=== PATIENT | female | born 1985 | race Caucasian/White ===

== ENCOUNTER → 2018-04-17 | Outpatient (REF) | payer OTHER | LOC: M SFHCLERA 11:15 | PROVIDERS: ATTEND Nurse Practitioner Family | DX: J02.9 Acute pharyngitis, unspecified (principal) ==

== ENCOUNTER 2018-12-15 03:16 | Inpatient (IN) | payer OTHER ==
[~2018-12-15] VITALS: Ht 157.5 cm; Wt 112.1 kg
[2018-12-15] MEDS ORDERED: NS 1,000 ML IV ONE (04:00)
[2018-12-15] MEDS ORDERED: MORPHINE 4 MG/ML 1ML VIAL/SYRINGE (J2270) IV ONE (04:00)
[2018-12-15 04:04] LABS: BASO % 0.4 % (0.0-1.0); EOS # 0.1 10^3/uL (0.0-0.5); EOS % 0.9 % (0.0-3.0); HEMATOCRIT 37.8 % (36.0-47.0); HEMOGLOBIN 12.7 g/dl (12.0-15.5); LYMPH # 1.4 10^3/uL (1.5-5.0); LYMPH % 15.6 % (24.0-44.0); MEAN CORPUSCULAR HEMOGLOBIN 31.3 pg (27.0-33.0); MEAN CORPUSCULAR HGB CONC 33.6 g/dl (32.0-36.5); MEAN CORPUSCULAR VOLUME 93.1 fl (80.0-96.0); MONO # 0.8 10^3/uL (0.0-0.8); MONO % 8.4 % (0.0-5.0); NEUTROPHILS # 6.7 10^3/uL (1.5-8.5); NEUTROPHILS % 74.5 % (36.0-66.0); PLATELET COUNT, AUTOMATED 276 10^3/uL (150-450); RED BLOOD COUNT 4.06 10^6/uL (4.00-5.40)
[2018-12-15 04:36] LABS: ALBUMIN 3.5 GM/DL (3.2-5.2); ALT/SGPT 21 U/L (12-78); BILIRUBIN,DIRECT < 0.1 MG/DL (0.0-0.2); BILIRUBIN,TOTAL 0.3 MG/DL (0.2-1.0); BLOOD UREA NITROGEN 11 MG/DL (7-18); CALCIUM LEVEL 8.8 MG/DL (8.5-10.1); CARBON DIOXIDE LEVEL 27 MEQ/L (21-32); CHLORIDE LEVEL 107 MEQ/L (98-107); CREATININE FOR GFR 0.71 MG/DL (0.55-1.30); GLOMERULAR FILTRATION RATE > 60.0 (>60); GLUCOSE, FASTING 94 MG/DL (70-100); LIPASE 91 U/L (73-393); POTASSIUM SERUM 3.7 MEQ/L (3.5-5.1); SODIUM LEVEL 139 MEQ/L (136-145); TOTAL PROTEIN 7.6 GM/DL (6.4-8.2)
[2018-12-15 04:38] LABS: HCG, SERUM QUALITATIVE NEGATIVE (NEGATIVE)
[2018-12-15 04:50] LABS: APPEARANCE, URINE CLEAR (CLEAR); BACTERIA, URINE AUTO 1+ (NEGATIVE); BILIRUBIN, URINE AUTO NEGATIVE (NEGATIVE); BLOOD, URINE BLOOD NEGATIVE (NEGATIVE); CALCIUM OXALATE CRYSTALS SMALL; COLOR, URINE STRAW (YELLOW); GLUCOSE, URINE (UA) AUTO NEGATIVE (NEGATIVE); KETONE, URINE AUTO NEGATIVE (NEGATIVE); LEUKOCYTE ESTERASE, URINE AUTO TRACE (NEGATIVE); NITRITE, URINE AUTO NEGATIVE (NEGATIVE); PROTEIN, URINE AUTO NEGATIVE (NEGATIVE); RBC, URINE AUTO 1 /HPF (0-3); SPECIFIC GRAVITY URINE AUTO 1.002 (1.002-1.035); SQUAMOUS EPITHELIAL CELL UR AU 3 /HPF (0-6); UROBILINOGEN, URINE AUTO 0.2 mg/dL (0.0-2.0); WBC, URINE AUTO 1 /HPF (0-3)
[2018-12-15] MEDS ORDERED: ISOVUE-370 76% 100ML VIAL (Q9967) As Ordered ONE (04:56)
--- NOTE | 2018-12-15 05:44 | REPVR ---
PROCEDURE INFORMATION: Exam: CT Angiography Chest With Contrast Exam date and time: 12/15/2018 4:52 AM Clinical history: 33 years old, female; Chest pain; Type not specified; Additional info: R flank/lower chest pain TECHNIQUE: Imaging protocol: Computed tomographic angiography of the chest with intravenous contrast. 3D rendering: MIP reconstructed images were created and reviewed. Radiation optimization: All CT scans at this facility use at least one of these dose optimization techniques: automated exposure control; mA and/or kV adjustment per patient size (includes targeted exams where dose is matched to clinical indication); or iterative reconstruction. Contrast material: ISO; Contrast volume: 75 ml; Contrast route: AC; COMPARISON: No relevant prior studies available. FINDINGS: Pulmonary arteries: Normal. No pulmonary emboli. Aorta: Unremarkable. No aortic aneurysm. No aortic dissection. Lungs: Unremarkable. No consolidation. No masses. Pleural space: Unremarkable. No pneumothorax. No pleural effusion. Heart: Unremarkable. No cardiomegaly. No pericardial effusion. Lymph nodes: Unremarkable. No enlarged lymph nodes. Bones/joints: Unremarkable. No acute fracture. Soft tissues: Unremarkable. IMPRESSION: No acute findings. Electronically signed by: Jethro Mars On 12/15/2018 05:43:57 AM
--- NOTE | 2018-12-15 06:00 | REPVR ---
PROCEDURE INFORMATION: Exam: CT Abdomen And Pelvis With Contrast Exam date and time: 12/15/2018 4:52 AM Clinical history: 33 years old, female; Abdominal pain; Flank; Right; Additional info: R flank/lower chest pain TECHNIQUE: Imaging protocol: Computed tomography of the abdomen and pelvis with intravenous contrast. Radiation optimization: All CT scans at this facility use at least one of these dose optimization techniques: automated exposure control; mA and/or kV adjustment per patient size (includes targeted exams where dose is matched to clinical indication); or iterative reconstruction. Contrast material: ISO; Contrast volume: 100 ml; Contrast route: AC; COMPARISON: No relevant prior studies available. FINDINGS: Liver: The liver is hypoattenuated. Gallbladder and bile ducts: There is a 2.4 cm gallstone in the neck of the gallbladder. The gallbladder is distended measuring 10.0 x 3.1 cm. There is no definite gallbladder wall thickening or pericholecystic fluid there is mild increased density in the gallbladder fossa. Pancreas: Normal. No ductal dilation. Spleen: Normal. No splenomegaly. Adrenals: Normal. No mass. Kidneys and ureters: Normal. No hydronephrosis. Stomach and bowel: Unremarkable. No obstruction. No mucosal thickening. Appendix: No evidence of appendicitis. Intraperitoneal space: Unremarkable. No free air. No significant fluid collection. Vasculature: Unremarkable. No abdominal aortic aneurysm. Lymph nodes: There are shotty small bowel mesenteric lymph nodes. Bladder: Unremarkable as visualized. Reproductive: IUD seen low-lying in the lower uterine segment/cervix.. There is 2.9 x 2.8 cm left ovarian cyst. There is 3.6 x 3.3 cm right ovarian cyst measuring higher than simple fluid density. Bones/joints: Lower thoracic spine anterior osteophytes seen. Soft tissues: Unremarkable. IMPRESSION: 1. Fatty infiltration of the liver. 2. 2.4 cm gallstone. 3. Mild increased density in the hepatic gallbladder fossa be secondary to focal fatty sparing or hyperemia secondary to gallbladder inflammation. Correlate with clinical history and LFTs. If indicated HIDA scan may be obtained for further evaluation. 4. 2.5 cm left ovarian cyst, simple appearing. 5. 3.6 cm right ovarian cyst measuring higher than simple fluid could be hemorrhagic cyst. 6. Low-lying IUD in the lower uterine segment/cervix. 7. Nonspecific shotty small bowel mesenteric lymph nodes. Correlate with clinical history and symptoms for enteritis. Electronically signed by: Jethro Mars On 12/15/2018 05:59:48 AM
[2018-12-15] MEDS ORDERED: PERCOCET 5MG/325MG TAB PO PRN ×2 (06:45)
[2018-12-15] MEDS ORDERED: ONDANSETRON 4MG/2ML VIAL (J2405) IV PRN (06:45)
[2018-12-15] MEDS ORDERED: ACETAMINOPHEN TAB 650MG DOSE (2X325MG) PO PRN (06:45)
[2018-12-15 08:15] VITALS: BP 133/90
[2018-12-15] MEDS: PANTOPRAZOLE 40MG INJ (PROTONIX) (C9113) IV SCH (09:05)
[2018-12-15] MEDS: MORPHINE 2 MG/ML 1ML VIAL (J2270) IV PRN ×3 (09:05→20:31)
[2018-12-15] MEDS: CelecoXIB (CeleBREX) 100 MG CAP PO SCH ×2 (09:06→20:31)
[2018-12-15] MEDS: metroNIDAZOLE 500 MG in IV 1 EA IV SCH ×2 (09:08→16:48)
[2018-12-15] MEDS: LR 1,000 ML IV SCH ×3 (09:08→20:32)
[2018-12-15] MEDS: ENOXAPARIN 40 MG/0.4 ML SYRINGE (J1650) SC SCH (09:08)
[2018-12-15] MEDS: AMPICILLIN SOD/SULBACTAM SOD 3 GM in D5W MINI-BAG PLUS 100 ML IV SCH ×3 (10:34→20:31)
[2018-12-15 14:00] VITALS: BP 114/72
--- NOTE | 2018-12-15 18:31 | HPEPDOC ---
General Surgery H&P Date of Admission Dec 15, 2018 Attending Physician: MARÍA CRESPO MD History and Physical CHIEF COMPLAINT: abdominal pain HISTORY OF PRESENT ILLNESS: Patient presented to the ED at about 3 am this morning with complaints of worsening right upper quadrant abdominal pain that started abruptly at about 9 pm. She had pizza for dinner at about 6 pm. She reports a sharp right sided upper abdominal pain radiating to her right chest and mid back area with associated nausea, no vomiting, though she feels she probably would feel much better if she was able to throw up. She reports one other episode a few years back of similar symptoms that went away on its own and denies regular biliary colic like episodes since then. ALLERGIES: Please see below. HOME MEDICATIONS: Please see below. PAST MEDICAL HISTORY: 1. Morbid obesity with a BMI of 45.2 2. Obstructive sleep apnea though patient is not on CPAP 3. Gastroesophageal reflux disease PAST SURGICAL HISTORY: 1. section 2 left ACL tear repair PERSONAL/SOCIAL HISTORY: Patient reports occasional alcohol use, denies smoking. REVIEW OF SYSTEMS: GENERAL: Patient was in her usual state of health prior to the abdominal pain. HEENT: Denies any acute problems. NECK: [Denies any neck pain]. CARDIOVASCULAR: [Denies chest pain and palpitations]. MUSCULOSKELETAL: [Denies arthralgias, back pain and thrombophlebitis]. SKIN: [Denies rash]. NEUROLOGIC: [Denies headache, stroke and transient ischemic attack]. ENDOCRINE: [Denies thyroid disease]. HEMATOLOGY/ONCOLOGY: [Denies any bleeding or clotting disorder]. PULMONARY: Patient reports obstructive sleep apnea. She has been tested for it has not been fitted up for CPAP. She does not require oxygen at home.. GASTROINTESTINAL: [Denies rectal bleeding, family history of colon cancer, c onstipation, diarrhea, dysphagia, heartburn and jaundice]. GENITOURINARY: [Denies dysuria, frequency, hematuria and nocturia]. ENDOCRINE: [Denies polydipsia, polyphagia, polyuria, heat or cold intolerance]. INFECTIOUS: [Denies any recent upper respiratory tract infection, UTI, need for use of antibiotics]. NUTRITION: [Reports good appetite]. PHYSICAL EXAMINATION: VITAL SIGNS: Please see below. GENERAL APPEARANCE: At the time that I saw her, she looks only mildly uncomfortable. [Awake, alert, oriented]. HEENT: [Normocephalic, atraumatic. [place] palpebral conjunctivae. Anicteric sclerae. Lips moist]. CHEST: [No chest wall abnormalities. Normal respiratory motion/effort]. NECK: [Supple. No thyromegaly. No lymphadenopathies]. LUNGS: [Lung sounds are clear to auscultation bilaterally. No wheezing appreciated]. HEART: [No chest wall abnormalities. Heart rate and rhythm are regular with no murmurs]. ABDOMEN: Patient has very protuberant and rounded abdomen with a good amount of truncal obesity, drooping heavy pannus. Normal abdominal skin. No visible umbilical herniations. No surgical scars appreciated. She is tender on palpation deeply at the right upper quadrant area with mild guarding, mild Wood sign. SKIN: [Warm, moist]. EXTREMITIES: [Extremities have no deformities. No edema identified]. NEUROLOGICAL: Awake, alert, oriented. ANCILLARIES: . LABORATORY DATA: Please see below. MICROBIOLOGY: Please see below. IMAGING: CT abdomen and pelvis 1. Fatty infiltration of the liver. 2. 2.4 cm gallstone. 3. Mild increased density in the hepatic gallbladder fossa be secondary to focal fatty sparing or hyperemia secondary to gallbladder inflammation. Correlate with clinical history and LFTs. If indicated HIDA scan may be obtained for further evaluation. 4. 2.5 cm left ovarian cyst, simple appearing. 5. 3.6 cm right ovarian cyst measuring higher than simple fluid could be hemorrhagic cyst. 6. Low-lying IUD in the lower uterine segment/cervix. 7. Nonspecific shotty small bowel mesenteric lymph nodes. Correlate with clinical history and symptoms for enteritis. IMPRESSION AND PLAN: Cholelithiasis with acute cholecystitis Morbid obesity Patient's history as well as her physical examination and radiologic findings consistent with acute cholecystitis. No abnormalities in her liver function test consistent with the obstruction of a large gallbladder stone in the gallbladder neck. She still is tender in examination at the time that I saw her. I discussed with her the need to do cholecystectomy. Optimal timing is early on in the course of the cholecystitis usually within the first 72 hours to avoid the severe inflammation resulting from the cholecystitis. There is some increased risk for bleeding, conversion to open surgery and mildly bile duct injuries. The other option will be an interval cholecystectomy usually within 4-6 weeks. 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 We will try to find time to do the procedure during this admission. I'll continue the antibiotics for the meantime and when the pain receded since we can advance her diet. Vital Signs Vital Signs Date Time Temp Pulse Resp B/P (MAP) Pulse Ox O2 Delivery O2 Flow Rate FiO2 12/15/18 14:00 98.2 74 16 114/72 (86) 96 Room Air Laboratory Data Labs 24H Laboratory Tests 2 12/15/18 03:53: Immature Granulocyte % (Auto) 0.2, Neutrophils (%) (Auto) 74.5H, Lymphocytes (%) (Auto) 15.6L, Monocytes (%) (Auto) 8.4H, Eosinophils (%) (Auto) 0.9, Basophils (%) (Auto) 0.4, Neutrophils # (Auto) 6.7, Lymphocytes # (Auto) 1.4L, Monocytes # (Auto) 0.8, Eosinophils # (Auto) 0.1, Basophils # (Auto) 0.0, Nucleated Red Blood Cells % (auto) 0.0, Urine Color STRAW, Urine Appearance CLEAR, Urine pH 7 .0, Urine Specific [place] 1.002, Urine Protein NEGATIVE, Urine Glucose (Auto)(UA) NEGATIVE, Urine Ketones (Auto) NEGATIVE, Urine Blood NEGATIVE, Urine Nitrite NEGATIVE, Urine Bilirubin NEGATIVE, Urine Urobilinogen 0.2, Urine Leukocyte Esterase (Auto) TRACEH, Urine WBC (Auto) 1, Urine RBC (Auto) 1, Urine Hyaline Casts (Auto) 0, Urine Bacteria (Auto) 1+H, Urine Squamous Epithelial Cells 3, Urine Calcium Oxalate Cryst (Auto) SMALL, Urine Sperm (Auto) , Anion Gap 5L, Glomerular Filtration Rate > 60.0, Calcium Level 8.8, Total Bilirubin 0.3, Direct Bilirubin < 0.1, Aspartate Amino Transf (AST/SGOT) 13, Alanine Aminotransferase (ALT/SGPT) 21, Alkaline Phosphatase 70, Total Protein 7.6, Albumin 3.5, Albumin/Globulin Ratio 0.85L, Lipase 91, Human Chorionic Gonadotropin, Qual NEGATIVE CBC/BMP Laboratory Tests 12/15/18 03:53 Microbiology Microbiology 12/15/18 Urine Culture, Received Pending Home Medications No Active Prescriptions or Reported Meds Allergies Coded Allergies: No Known Allergies (Unverified , 12/15/18) MARÍA CRESPO MD Dec 15, 2018 18:31
[2018-12-15 22:00] VITALS: BP 117/72
[2018-12-16] VITALS (10 sets, daily range): BP systolic 125–157; BP diastolic 79–106; O2SAT 98
[2018-12-16] MEDS: metroNIDAZOLE 500 MG in IV 1 EA IV SCH ×3 (00:02→16:30)
[2018-12-16] MEDS: AMPICILLIN SOD/SULBACTAM SOD 3 GM in D5W MINI-BAG PLUS 100 ML IV SCH ×4 (03:11→20:23)
[2018-12-16 06:28] LABS: BASO % 0.6 % (0.0-1.0); EOS # 0.1 10^3/uL (0.0-0.5); HEMATOCRIT 34.5 % (36.0-47.0); HEMOGLOBIN 11.5 g/dl (12.0-15.5); LYMPH % 13.7 % (24.0-44.0); MEAN CORPUSCULAR HEMOGLOBIN 31.3 pg (27.0-33.0); MEAN CORPUSCULAR HGB CONC 33.3 g/dl (32.0-36.5); MEAN CORPUSCULAR VOLUME 93.8 fl (80.0-96.0); MONO # 0.6 10^3/uL (0.0-0.8); MONO % 7.9 % (0.0-5.0); NEUTROPHILS # 5.3 10^3/uL (1.5-8.5); NEUTROPHILS % 75.5 % (36.0-66.0); PLATELET COUNT, AUTOMATED 252 10^3/uL (150-450); RED BLOOD COUNT 3.68 10^6/uL (4.00-5.40)
[2018-12-16] MEDS: LR 1,000 ML IV SCH ×2 (06:45→14:51)
[2018-12-16 06:54] LABS: ALBUMIN 2.7 GM/DL (3.2-5.2); ALT/SGPT 24 U/L (12-78); BILIRUBIN,TOTAL 0.4 MG/DL (0.2-1.0); BLOOD UREA NITROGEN 8 MG/DL (7-18); CALCIUM LEVEL 8.2 MG/DL (8.5-10.1); CARBON DIOXIDE LEVEL 28 MEQ/L (21-32); CHLORIDE LEVEL 108 MEQ/L (98-107); CREATININE FOR GFR 0.61 MG/DL (0.55-1.30); GLOMERULAR FILTRATION RATE > 60.0 (>60); GLUCOSE, FASTING 89 MG/DL (70-100); POTASSIUM SERUM 3.9 MEQ/L (3.5-5.1); SODIUM LEVEL 140 MEQ/L (136-145); TOTAL PROTEIN 6.7 GM/DL (6.4-8.2)
[2018-12-16] MEDS: CelecoXIB (CeleBREX) 100 MG CAP PO SCH ×2 (08:26→20:23)
[2018-12-16] MEDS: PANTOPRAZOLE 40MG INJ (PROTONIX) (C9113) IV SCH (08:26)
--- NOTE | 2018-12-16 09:24 | IPNPDOC ---
Subjective General Date/Time Seen The patient was seen on 12/16/18 at 09:16. Subject Chief Complaint/History The patient is a 33-year-old female admitted with a reason for visit of Acute Cholecystitis Due To Biliary Calculus. Pain has imrpoved, minimal soreness left, no nausea. Current Medications Current Medications Current Medications Medications (Trade) Dose Ordered Sig/Ethan Route PRN Reason Start Time Stop Time Status Last Admin Dose Admin Acetaminophen (Tylenol Tab) 650 mg Q4HP PRN PO MILD PAIN or TEMP > 101 12/15/18 06:45 Ampicillin Sodium/ Sulbactam Sodium 3 gm/Dextrose 100 ml @ 200 mls/hr Q6H IV 12/15/18 09:00 12/16/18 03:11 Celecoxib (CeleBREX) 200 mg BID PO 12/15/18 06:45 12/15/18 20:31 Enoxaparin Sodium (Lovenox) 40 mg DAILY SC 12/15/18 09:00 Hold 12/15/18 09:08 Home Med (Med Rec Complete!) ASDIRECTED XX 12/15/18 06:30 12/15/18 06:18 DC Lactated Ringer's 1,000 ml @ 125 mls/hr Q8H IV 12/15/18 06:37 12/16/18 06:45 Metronidazole 500 mg/IV Miscellaneous Supplies 100 ml @ 100 mls/hr Q8H IV 12/15/18 08:00 12/16/18 08:26 Morphine Sulfate (Morphine Sulfate Inj) 4 mg Q4H PRN IV SEVERE PAIN (PS 8-10) 12/15/18 06:45 12/15/18 20:31 Ondansetron HCl (ZOFRAN INJection) 4 mg Q6HP PRN IV NAUSEA OR VOMITING 12/15/18 06:45 Oxycodone/ Acetaminophen (Percocet 5mg/ 325mg Tablet) 1 tab Q4H PRN PO MILD/MODERATE PAIN (PS 1-7) 12/15/18 06:45 Oxycodone/ Acetaminophen (Percocet 5mg/ 325mg Tablet) 2 tab Q6H PRN PO SEVERE PAIN (PS 8-10) 12/15/18 06:45 Pantoprazole Sodium (Protonix) 40 mg DAILY IV 12/15/18 09:00 12/16/18 08:26 Allergies Coded Allergies: No Known Allergies (Unverified , 12/15/18) Objective Physical Examination Examination GENERAL APPEARANCE:comfortable. SKIN: Warm and moist. HEENT: Normocephalic, atraumatic. [place] palpebral conjunctiva, anicteric sclerae. Lips and mucosa appear moist. NECK: Supple, no thyromegaly. No obvious jugular venous distention. LUNGS: Clear to auscultation bilaterally. No wheezing appreciated. HEART: No chest wall abnormalities. Regular rate and rhythm with no murmurs appreciated. ABDOMEN: Abdomen is nondistended, soft, mild tenderness over right upper quadrant without guarding. EXTREMITIES: Extremities have no deformities. No edema identified. Vital Signs Vital Signs Date Time Temp Pulse Resp B/P (MAP) Pulse Ox O2 Delivery O2 Flow Rate FiO2 12/16/18 06:00 98.0 87 18 135/84 (101) 97 Room Air I&Os I&O- Last 24 Hours up to 6 AM 12/16/18 06:00 Intake Total 1300 ml Output Total 1175 ml Balance 125 ml Laboratory Data Labs 24H Laboratory Tests 2 12/16/18 06:03: Immature Granulocyte % (Auto) 0.3, Neutrophils (%) (Auto) 75.5H, Lymphocytes (%) (Auto) 13.7L, Monocytes (%) (Auto) 7.9H, Eosinophils (%) (Auto) 2.0, Basophils (%) (Auto) 0.6, Neutrophils # (Auto) 5.3, Lymphocytes # (Auto) 1.0L, Monocytes # (Auto) 0.6, Eosinophils # (Auto) 0.1, Basophils # (Auto) 0.0, Nucleated Red Blood Cells % (auto) 0.0, Anion Gap 4L, Glomerular Filtration Rate > 60.0, Calcium Level 8.2L, Total Bilirubin 0.4, Aspartate Amino Transf (AST/SGOT) 21, Alanine Aminotransferase (ALT/SGPT) 24, Alkaline Phosphatase 60, Total Protein 6.7, Albumin 2.7#L, Albumin/Globulin Ratio 0.68L CBC/BMP Laboratory Tests 12/16/18 06:03 Microbiology Microbiology 12/15/18 Urine Culture - Final, Complete Impression Cholelithiasis with acute cholecystitis [place] for robotic assisted laparoscopic cholecystectomy today. I reviewed with her the details of how this is performed, the small possibility of needing to convert to open surgery; the possible complications of performing cholecystectomy during acute events including mild increase in bleeding, bile duct injury, conversion to open surgery; reviewed expected postoperative course. Consent obtained from the patient. Plan / VTE VTE Prophylaxis Ordered?: Yes MARÍA CRESPO MD Dec 16, 2018 09:24
[2018-12-16] MEDS ORDERED: ROCURONIUM BROMIDE 50 MG/5 ML VIAL As Ordered ONE ×2 (10:47→12:10)
[2018-12-16] MEDS ORDERED: fentaNYL 250 MCG/5 ML INJECTION (J3010) As Ordered ONE (10:47)
[2018-12-16] MEDS ORDERED: MIDAZOLAM INJ 2 MG/2 ML VIAL (J2250) As Ordered ONE (10:47)
[2018-12-16] MEDS ORDERED: LIDOCAINE 2% INJ 100 MG/5 ML SDV (FOR ANES.) As Ordered ONE (10:47)
[2018-12-16] MEDS ORDERED: PROPOFOL 200 MG/20 ML VIAL As Ordered ONE (10:47)
[2018-12-16] MEDS ORDERED: ONDANSETRON 4MG/2ML VIAL (J2405) As Ordered ONE (10:48)
[2018-12-16] MEDS ORDERED: dexameTHASONE 4 MG/ML 1ML VIAL (J1100) As Ordered ONE (10:48)
[2018-12-16] MEDS ORDERED: LACRILUBE (AKWA TEARS) OPHTH OINT 3.5 GM As Ordered ONE (10:57)
[2018-12-16] MEDS ORDERED: BUPIVACAINE HCL 0.25% 30 ML VIAL As Ordered ONE (11:06)
[2018-12-16] MEDS ORDERED: LIDOCAINE 1% SDV INJ 30 ML VIAL As Ordered ONE (11:06)
[2018-12-16] MEDS ORDERED: ACETAMINOPHEN 1000MG 100ML IV BTL (OFIRMEV) (J0131 PER 10MG) As Ordered ONE (12:01)
[2018-12-16] MEDS ORDERED: SUGAMMADEX SODIUM 500 MG/5 ML VIAL (BRIDION) As Ordered ONE (12:24)
[2018-12-16] MEDS ORDERED: KETOROLAC 60 MG/2 ML VIAL (J1885) As Ordered ONE (13:03)
[2018-12-16] MEDS ORDERED: fentaNYL 100 MCG/2 ML INJECTION (J3010) As Ordered ONE (13:53)
[2018-12-16] MEDS ORDERED: oxyCODONE 5MG TAB As Ordered ONE (13:53)
[2018-12-16] MEDS ORDERED: ONDANSETRON 4MG/2ML VIAL (J2405) IV PRN (14:30)
[2018-12-16] MEDS ORDERED: METOCLOPRAMIDE INJ 10MG/2ML VIAL (J2765) IV PRN (14:30)
[2018-12-16] MEDS ORDERED: LR 1,000 ML IV SCH (14:30)
[2018-12-16] MEDS ORDERED: oxyCODONE 5MG TAB PO PRN (14:30)
[2018-12-16] MEDS ORDERED: fentaNYL 100 MCG/2 ML INJECTION (J3010) IV PRN (14:30)
[2018-12-16] MEDS ORDERED: MEPERIDINE INJ 25 MG/ML VIAL (J2175) IV PRN (14:30)
[2018-12-17] VITALS: BP 150/82
[2018-12-17 00:04] VITALS: O2SAT 97
[2018-12-17] MEDS: metroNIDAZOLE 500 MG in IV 1 EA IV SCH ×2 (00:47→08:47)
[2018-12-17 02:00] VITALS: BP 147/80
[2018-12-17] MEDS: AMPICILLIN SOD/SULBACTAM SOD 3 GM in D5W MINI-BAG PLUS 100 ML IV SCH ×2 (03:09→09:44)
[2018-12-17 06:00] VITALS: BP 126/64
[2018-12-17] MEDS: CelecoXIB (CeleBREX) 100 MG CAP PO SCH (08:47)
[2018-12-17] MEDS: PANTOPRAZOLE 40MG INJ (PROTONIX) (C9113) IV SCH (08:47)
[2018-12-17] MEDS ORDERED: INFLUENZA QUADRIVALENT PF VACCINE 0.5ML SYRINGE (90686) IM ONE (09:00)
[2018-12-17] MEDS: ENOXAPARIN 40 MG/0.4 ML SYRINGE (J1650) SC SCH (09:00)
[2018-12-17 09:30] VITALS: O2SAT 99
--- NOTE | 2018-12-17 09:36 | ROOPDOC ---
[facility] Report Of Operation Report of Operation DATE OF PROCEDURE: 12/16/18 PREPROCEDURE DIAGNOSES: Cholelithiasis with acute cholecystitis POSTPROCEDURE DIAGNOSES: Cholelithiasis with acute cholecystitis, PROCEDURE: Robotic-assisted laparoscopic cholecystectomy with use of ICG for intraoperative identification of the external biliary tree SURGEON: Alexx Leung MD PRINCIPAL IOS DEVELOPER: ANESTHESIA: Gen. anesthesia. ESTIMATED BLOOD LOSS: Approximately 20 mL. COMPLICATIONS: None. REMARKS: Patient is a 33-year-old female who presented to the emergency room with sudden onset of right upper quadrant, right lower chest wall pain and discomfort of sudden onset was found to have evidence for large stone stuck in the neck of the gallbladder with acute cholecystitis. PROCEDURE NOTE: Distended and mildly thick walled gallbladder with acute edema around the wall of the gallbladder and the liver consistent with acute cholecystitis. Couple of large stones in the neck the gallbladder is noted but fairly mobile. I used ICG to identify the cystic duct and extrahepatic biliary tree. Initially the cystic duct was not eliminating on firefly but when the stone was dislodged upwards to the wall, the cystic duct is clearly visualized this is consistent with cystic duct obstruction caused by the gallstones which is [id number] for acute cholecystitis. DESCRIPTION OF PROCEDURE: ALEXX LEUNG MD Dec 17, 2018 09:36
[2018-12-17] MEDS ORDERED: PERCOCET PO (09:51)
--- NOTE | 2018-12-17 09:56 | DS.PDOC ---
Discharge Summary General Date of Admission Dec 15, 2018 at 06:37 Date of Discharge 2018 Attending Physician: MARÍA CRESPO MD Discharge Summary PROCEDURES PERFORMED DURING STAY: Robotic Assisted Laparoscopic Cholecystectomy. ADMITTING DIAGNOSES: 1. Acute Cholecystitis 2. Morbid Obesity with BMI 45. DISCHARGE DIAGNOSES: 1. Acute Cholecystitis 2. Morbid Obesity with BMI 45. COMPLICATIONS/CHIEF COMPLAINT: Acute Cholecystitis Due To Biliary Calculus. HISTORY OF PRESENT ILLNESS: . HOSPITAL COURSE: . DISCHARGE MEDICATIONS: Please see below. ALLERGIES: Please see below. PHYSICAL EXAMINATION ON DISCHARGE: VITAL SIGNS: Please see below. GENERAL: Patient sitting up on chair, looks very comfortable HEENT: Anicteric sclerae CARDIOVASCULAR EXAMINATION: Regular Heart rate and rhythm RESPIRATORY EXAMINATION: Clear breath sounds to auscultation without weezing ABDOMINAL EXAMINATION: Soft, nondistended, port site incisions with dermabond dressing, clean, dry, intact, no drainage. Minimal discomfort on palpation a round incision, nontender to abdomen EXTREMITIES: no edema SKIN: no jaundice NEUROLOGICAL EXAMINATION: awake, alert, oriented LABORATORY DATA: Please see below. IMAGING: CT scan abdomen and pelvis PROGNOSIS: good ACTIVITY: light activity x 2 weeks. DIET: regular diet DISCHARGE PLAN: d/c home. No further antibiotics needed. Prescription for percocets sent to [facility] pharmacy DISPOSITION: . DISCHARGE INSTRUCTIONS: 1. as above 2. Follow up in 2 weeks 3 june shower. ITEMS TO FOLLOWUP ON ON OUTPATIENT: 1. final pathology. DISCHARGE CONDITION: Stable. TIME SPENT ON DISCHARGE: Greater than 30 minutes. Vital Signs/I&Os Vital Signs Date Time Temp Pulse Resp B/P (MAP) Pulse Ox O2 Delivery O2 Flow Rate FiO2 12/17/18 09:30 99 Room Air 12/17/18 06:00 97.9 78 20 126/64 (84) 12/16/18 14:19 2 I&O- Last 24 Hours up to 6 AM 12/17/18 06:00 Intake Total 4010 ml Output Total 2250 ml Balance 1760 ml Microbiology Microbiology 12/15/18 Urine Culture - Final, Complete Discharge Medications Scheduled PRN Oxycodone/Acetaminophen (Oxycodone-Acetaminophen 5-325) 1 Each Tablet, 1-2 TAB PO Q6H PRN for SEVERE PAIN (PS 8-10) Allergies Coded Allergies: No Known Allergies (Unverified , 12/15/18) MARÍA CRESPO MD Dec 17, 2018 09:56
== END 2018-12-17 11:45 | disposition home or self-care (01) | DRG 418 ==
LOC: M ED 03:16 → M ED INP 06:37 → M MS5PR 08:10
PROVIDERS: ADMIT Surgery; ATTEND Surgery
PROC: 0FT44ZZ Resection of Gallbladder, Percutaneous Endoscopic Approach (ICD-10-PCS; principal; 2018-12-16 14:00)
DX: K81.0 Acute cholecystitis (principal); Z68.45 Body mass index [BMI] 70 or greater, adult; E66.01 Morbid (severe) obesity due to excess calories; G47.33 Obstructive sleep apnea (adult) (pediatric); K21.9 Gastro-esophageal reflux disease without esophagitis; K76.0 Fatty (change of) liver, not elsewhere classified; N83.201 Unspecified ovarian cyst, right side; N83.202 Unspecified ovarian cyst, left side

== ENCOUNTER 2019-08-16 10:46 | Emergency (ER) | payer OTHER ==
[~2019-08-16] VITALS: Ht 157.5 cm; Wt 109.5 kg
[~2019-08-16 10:46] MED LIST: PERCOCET PO
[2019-08-16] MEDS ORDERED: DEPO150I12 IM (11:12)
[2019-08-16] MEDS ORDERED: CIPRODEX AS (12:47)
[2019-08-16 13:21] VITALS: BP 136/96
--- NOTE | 2019-08-16 13:50 | REP ---
RIGHT SHOULDER, THREE VIEWS: There is no evidence of an acute fracture, dislocation or intrinsic bone disease. IMPRESSION: No fracture or dislocation. Electronically Signed by Sridhar Salmeron MD 08/18/2019 11:14 P
== END 2019-08-16 13:24 | disposition home or self-care (01) ==
LOC: M ED 10:46
DX: H60.92 Unspecified otitis externa, left ear (principal); M25.511 Pain in right shoulder; Z79.899 Other long term (current) drug therapy

== ENCOUNTER 2020-04-28 10:01 | Emergency (ER) | payer OTHER ==
[~2020-04-28] VITALS: Ht 160 cm; Wt 100.5 kg
[~2020-04-28 10:01] MED LIST changes: +CIPR7.5D5 AS; +DEPO150I12 IM
[2020-04-28] MEDS ORDERED: TIZA4CAP PO (10:35)
[2020-04-28] MEDS ORDERED: TOPA50TA8 PO (10:35)
[2020-04-28] MEDS ORDERED: OMEP-218 PO (10:35)
[2020-04-28] MEDS ORDERED: JUNE1TAB PO (10:35)
[2020-04-28] MEDS ORDERED: OMEP40CA97 PO (10:35)
[2020-04-28] MEDS ORDERED: NS 1,000 ML IV SCH (11:46)
[2020-04-28] MEDS ORDERED: ONDANSETRON 4MG/2ML VIAL IV ONE (11:50)
[2020-04-28] MEDS ORDERED: KETOROLAC 30 MG/ML 1ML VIAL IV ONE (11:50)
[2020-04-28 12:19] LABS: BASO # 0.1 10^3/uL (0.0-0.2); BASO % 0.6 % (0.0-1.0); EOS # 0.1 10^3/uL (0.0-0.5); HEMATOCRIT 38.7 % (36.0-47.0); HEMOGLOBIN 13.1 g/dl (12.0-15.5); LYMPH # 1.5 10^3/uL (1.5-5.0); LYMPH % 18.8 % (24.0-44.0); MEAN CORPUSCULAR HEMOGLOBIN 31.7 pg (27.0-33.0); MEAN CORPUSCULAR HGB CONC 33.9 g/dl (32.0-36.5); MEAN CORPUSCULAR VOLUME 93.7 fl (80.0-96.0); MONO # 0.5 10^3/uL (0.0-0.8); MONO % 5.6 % (2.0-8.0); NEUTROPHILS # 5.9 10^3/uL (1.5-8.5); NEUTROPHILS % 73.7 % (36.0-66.0); PLATELET COUNT, AUTOMATED 303 10^3/uL (150-450); RED BLOOD COUNT 4.13 10^6/uL (4.00-5.40)
[2020-04-28 12:31] LABS: INR 1.04; PROTHROMBIN TIME 13.8 SECONDS (12.5-14.3)
[2020-04-28 12:53] LABS: ALBUMIN 3.7 GM/DL (3.2-5.2); ALT/SGPT 16 U/L (12-78); BILIRUBIN,DIRECT < 0.1 MG/DL (0.0-0.2); BILIRUBIN,TOTAL 0.3 MG/DL (0.2-1.0); BLOOD UREA NITROGEN 12 MG/DL (7-18); CALCIUM LEVEL 8.9 MG/DL (8.5-10.1); CARBON DIOXIDE LEVEL 21 MEQ/L (21-32); CHLORIDE LEVEL 109 MEQ/L (98-107); CREATININE FOR GFR 0.79 MG/DL (0.55-1.30); GLOMERULAR FILTRATION RATE > 60.0 (>60); GLUCOSE, FASTING 83 MG/DL (70-100); LIPASE 91 U/L (73-393); POTASSIUM SERUM 3.9 MEQ/L (3.5-5.1); SODIUM LEVEL 140 MEQ/L (136-145); TOTAL PROTEIN 7.6 GM/DL (6.4-8.2)
[2020-04-28 12:57] LABS: HCG, SERUM QUALITATIVE NEGATIVE (NEGATIVE)
--- NOTE | 2020-04-28 13:39 | REP ---
INDICATION: left flank pain COMPARISON: 12/15/2018. TECHNIQUE: CT Scan of the abdomen and pelvis was performed without intravenous contrast. Sagittal and coronal reconstruction images performed. FINDINGS: Lung bases: Unremarkable. Liver: Grossly unremarkable. Gallbladder: Prior cholecystectomy. Spleen: Grossly unremarkable.. Adrenals: Normal. Pancreas: Grossly unremarkable.. Kidneys: No hydronephrosis or nephrolithiasis. Ureters demonstrate no dilatation or calculus. Small and large bowel: Grossly unremarkable. Mild nonspecific edema is seen in the mesenteric fat lateral to the jejunum and anterior to the left colon at the level of the mid abdomen. Free fluid: None. Abdominal aorta: No aneurysm. Adenopathy: None. Appendix: Not inflamed. Osseous structures: Unremarkable. Pelvis: No mass. No bladder calculus seen. IMPRESSION: Mild nonspecific edema is seen in the mesenteric fat lateral to the jejunum and anterior to the left colon at the level of the mid abdomen. Findings may represent enteritis or mesenteritis. <Electronically signed by Sridhar Salmeron > 04/28/20 [id number]
[2020-04-28] MEDS ORDERED: IBUP-1022 PO (13:50)
[2020-04-28] MEDS ORDERED: CEPH500C PO (13:50)
[2020-04-28 14:06] VITALS: BP 133/79
== END 2020-04-28 14:09 | disposition home or self-care (01) ==
LOC: M ED 10:01
DX: K65.4 Sclerosing mesenteritis (principal); K21.9 Gastro-esophageal reflux disease without esophagitis; Z79.899 Other long term (current) drug therapy
CPT/HCPCS: 74176; 80048; 80076; 81001; 83690; 84703; 85025; 85610; 96361; 96374; 96375; 99284; J1885; J2405